=== PATIENT | male | born 1975 | race Caucasian/White ===

== ENCOUNTER 2016-06-12 20:11 | Emergency (ER) | payer OTHER ==
[2016-06-12 20:56] VITALS: BP 121/70; PULSE 99; TEMP 98.4; BMI 32.8
== END 2016-06-13 03:44 | disposition left against medical advice (07) ==
LOC: JERFT 20:11 → JER 20:11
DX: Z53.21 Procedure and treatment not carried out due to patient leaving prior to being seen by health care provider (principal)
CPT/HCPCS: 99281-25

== ENCOUNTER 2016-06-14 18:30 | Emergency (ER) | payer OTHER ==
--- NOTE | 2016-06-14 18:34 | PDOC ---
History of Present Illness - General History Source: Patient Exam Limitations: No Limitations - History of Present Illness Initial Comments: 06/14/16 19:06 The patient is a 40 year old male, occasional smoker, with a significant past medical history of HTN and GOUT who presents to the emergency department with left sided chest pain for 2 days and stomach pain for 3 weeks. The patient describes the chest pain as sharp, nonradiating, and intermittent with episodes lasting a few seconds at a time. The patient described his stomach pain as soreness and said it, feels like a string is attached to my stomach and someone is pulling on it. The patient notes that his stomach pain is exacerbated by movement. The patient states that he took 80 mg of aspirin with minimal alleviation of symptoms. <Babatunde Perez - Last Filed: 06/14/16 19:12> <Severo Alvarado - Last Filed: 06/14/16 19:18> - General Chief Complaint: Chest Pain Stated Complaint: EPISODE OF CHEST PAIN 2 DAYS AGO Time Seen by Provider: 06/14/16 18:33 Past History <Babatunde Perez - Last Filed: 06/14/16 19:12> - Past Medical History HTN: Yes - Immunization History Immunization Up to Date: Yes - Psycho/Social/Smoking Cessation Hx Suicidal Ideation: No Smoking History: Current every day smoker Number of Cigarettes Smoked Daily: 1 Hx Alcohol Use: No Drug/Substance Use Hx: No <Severo Alvarado - Last Filed: 06/14/16 19:18> - Past Medical History Allergies/Adverse Reactions: Allergies Allergy/AdvReac Type Severity Reaction Status Date / Time No Known Allergies Allergy Verified 06/12/16 20:56 Home Medications: Ambulatory Orders Aspirin [Aspirin EC] 81 mg PO DAILY 06/14/16 Losartan/Hydrochlorothiazide [Losartan-Hctz 100-25 mg Tab] 1 each PO DAILY 06/14 Review of Systems - Review of Systems Able to Perform ROS?: Yes Comments:: 06/14/16 19:06 CONSTITUTIONAL: Absent: Fever, Chills, Diaphoresis, Generalized Weakness, Malaise, Loss of Appetite HEENT: Absent: Rhinorrhea, Nasal Congestion, Throat Pain, Throat Swelling, Difficulty Swallowing, Mouth Swelling, Ear Pain, Eye Pain, Visual Changes CARDIOVASCULAR: Present: Chest Pain Absent: Syncope, Palpitations, Irregular Heart Rate, Lightheadedness, Peripheral Edema RESPIRATORY: Absent: Cough, Shortness of Breath, SOB with Exertion, Orthopnea, Wheezing, Stridor, Hemoptysis GASTROINTESTINAL: Present: Abdominal pain Absent: Abdominal Distension, Nausea, Vomiting, Diarrhea, Constipation, Melena, Hematochezia GENITOURINARY: Absent: Dysuria, Frequency, Urgency, Hesitancy, Flank Pain, Genital Pain MUSCULOSKELETAL: Absent: Myalgia, Arthralgia, Joint Swelling, Back pain, Neck Pain SKIN: Absent: Rash, Itching, Pallor HEMATOLOGIC/IMMUNOLOGIC: Absent: Easy Bleeding, Easy Bruising, Lymphadenopathy, Frequent infections ENDOCRINE: Absent: Unexplained Weight Gain, Unexplained Weight Loss, Heat Intolerance, Cold Intolerance NEUROLOGIC: Absent: Headache, Focal Weakness, Paresthesias, Vertigo, Lightheadedness, Unsteady Gait, Seizure, Mental Status Changes, Incontinence PSYCHIATRIC: Absent: Anxiety, Depression <Babatunde Perez - Last Filed: 06/14/16 19:12> *Physical Exam - Vital Signs Last Vital Signs Temp Pulse Resp BP Pulse Ox 98.0 F 86 15 132/90 98 06/14/16 18:32 06/14/16 18:32 06/14/16 18:32 06/14/16 18:32 06/14/16 18:32 - Physical Exam Comments: 06/14/16 19:08 GENERAL: The patient is awake, alert, and fully oriented, in no acute distress. HEAD: Normal with no signs of trauma. EYES: Pupils equal, round and reactive to light, extraocular movements intact, sclera anicteric, conjunctiva clear. ENT: Ears normal, nares patent, oropharynx clear without exudates. Moist mucous membranes. NECK: Normal range of motion, supple without lymphadenopathy, JVD, or masses. LUNGS: Breath sounds equal, clear to auscultation bilaterally. No wheezes, and no crackles. HEART: Regular rate and rhythm, normal S1 and S2 without murmur, rub or gallop. ABDOMEN: Soft, nontender, normoactive bowel sounds. No guarding, no rebound. No masses. EXTREMITIES: Normal range of motion, no edema. No clubbing or cyanosis. No cords , erythema, or tenderness. NEUROLOGICAL: Cranial nerves II through XII grossly intact. Normal speech, normal gait. PSYCH: Normal mood, normal affect. SKIN: Warm, Dry, normal turgor, no rashes or lesions noted. <Babatunde Perez - Last Filed: 06/14/16 19:12> Heart Score/ECG Review - History History: Slightly suspicious - Electrocardiogram EKG: Normal - Age Age: </= 45 - Risk Factors Risk Factors Heart Score: Yes Hx Hypertension, Yes Smoking History, Yes Positive family hx of cardiac disease Based on the list above the patient has:: >/=3 risk factors or Hx atherosclerotic disease - Troponin Troponin: </= normal limit - Score Heart Score - Total: 2 (Low risk) - ECG Impressions Comment:: 06/14/16 19:10 Twelve-lead EKG was performed and reviewed by me. There is [normal sinus rhythm ] at a rate of (85) beats per minute. The axis is [normal]. The intervals are normal. There are no abnormal Q waves. There are no abnormal ST elevations or depressions. There are no significant T wave abnormalities. Impression: Normal twelve-lead EKG. <Babatunde Perez - Last Filed: 06/14/16 19:12> ED Treatment Course - Medications Given in the ED: ED Medications Discontinued Medications Generic Name Dose Route Start Last Admin Trade Name Freq PRN Reason Stop Dose Admin Ranitidine HCl 300 mg 06/14/16 19:01 06/14/16 19:04 Zantac - PO 06/14/16 19:02 300 mg ONCE ONE Administration <AnaBabatunde - Last Filed: 06/14/16 19:12> Medical Decision Making - Medical Decision Making 06/14/16 19:16 Patient is a previously healthy 40-year-old man, does have cardiac risk factors of hypertension, occasional smoking, and family history of heart disease. He presents with very brief shooting episodes of left pectoral chest pain lasting for a few seconds at maximum. There are no associated symptoms of shortness of breath, vomiting, diaphoresis, and no radiation. On examination, the patient is normal. He also complains of some chronic steady abdominal discomfort after working out, notably when he turns or moves he feels pain in his upper abdomen. Abdominal examination is also benign. Twelve-lead EKG is normal. Patient's heart risk score puts him in the low risk category. Plan will be for serial troponins, if negative, patient can be discharged home given his less than 1% risk for acute coronary syndrome. Abdominal pain will be evaluated with lipase and LFTs. He more likely has musculoskeletal disease, or less likely peptic disease. Patient endorsed to Dr. Delfin Russo for further evaluation at change of shift. The scribe's documentation has been prepared under my direction and personally reviewed by me in its entirety. I have confirmed that the note above accurately reflects all work, treatment, procedures, and medical decision- making performed by me. <Severo Alvarado - Last Filed: 06/14/16 19:18> *DC/Admit/Observation/Transfer - Attestations Scribe Attestion: 06/14/16 19:10 Documentation prepared by Babatunde Perez, acting as medical secretary teacher for Severo Alvarado MD. <Babatunde Perez - Last Filed: 06/14/16 19:12> <Severo Alvarado - Last Filed: 06/14/16 19:18> Diagnosis at time of Disposition: Atypical chest pain - Discharge Dispostion Condition at time of disposition: Stable
[2016-06-14 18:59] VITALS: BP 132/90; PULSE 86; TEMP 98; BMI 32.8
[2016-06-14] MEDS ORDERED: RANITIDINE HCL 150 MG TABLET (FP) PO ONE (19:01)
[2016-06-14] MEDS ORDERED: RANITIDINE HCL 150 MG TABLET (FP) ONE (19:03)
[2016-06-14 19:36] LABS: BASOPHIL 0.5 % (0-2.0); EOSINOPHIL 2.6 % (0-4.5); MCH 29.8 pg (25.7-33.7); MCHC 33.6 g/dl (32.0-35.9); MEAN CELL VOLUME 88.6 fl (80-96); MEAN PLT VOLUME 7.9 fl (7.5-11.1); NEUTROPHILS 42.8 % (42.8-82.8); PLATELET COUNT 337 K/MM3 (134-434); RDW 12.3 % (11.9-15.9); WHITE BLOOD COUNT 8.3 K/mm3 (4.0-10.0)
[2016-06-14 19:46] LABS: ALBUMIN 4.3 g/dl (3.5-5.0); ALK PHOS 51 U/L (32-92); ANION GAP 9 (8-16); BILIRUBIN,TOTAL 0.5 mg/dl (0.2-1.0); CALCIUM 9.3 mg/dl (8.4-10.2); CO2 25 mmol/L (22-28); CREATININE 0.8 mg/dl (0.6-1.3); GLUCOSE,RANDOM 110 mg/dl (74-106); SGOT/AST 51 U/L (10-42); SGPT/ALT 45 U/L (10-40); TOT PROT 7.1 g/dl (6.4-8.3)
[2016-06-14 19:58] LABS: TROPONIN I (DFP) < 0.03 ng/ml (0.03-0.50)
[2016-06-14] MEDS ORDERED: POTASSIUM CHLORIDE TABS 20 MEQ TABLET.ER (FP) PO ONE ×2 (20:19→20:22)
[2016-06-14 20:21] LABS: CPK(DFH) 151 IU/L (38-174)
--- NOTE | 2016-06-14 22:19 | PDOC ---
*Physical Exam - Vital Signs Last Vital Signs Temp Pulse Resp BP Pulse Ox 98.0 F 86 15 132/90 98 06/14/16 18:32 06/14/16 18:32 06/14/16 18:32 06/14/16 18:32 06/14/16 18:32 06/14/16 22:18 Care of this patient was transferred to tx from Dr. Delgado at 7 PM. This is a 40-year-old male who has a complaint of chest pain with some cardiac risk factors. Patient's heart score is 2. Patient has a normal cardiogram, negative troponin and negative workup thus far Patient has a second set of enzymes that will be done at 10:20 PM and if they' re negative patient's risk of an acute coronary event is less than 1% and he will be discharged home for a outpatient workup.Manic 06/14/16 23:15 Patient's symptoms have resolved and his second set of enzymes is negative. Patient's chances of this being acute coronary syndrome is less than 1%. Patient discharged home ED Treatment Course - LABORATORY CBC & Chemistry Diagram: 06/14/16 19:20 06/14/16 19:20 - ADDITIONAL ORDERS Additional order review: Laboratory Results 06/14/16 06/14/16 06/14/16 19:20 19:20 19:20 Sodium 136 Potassium 3.3 L Chloride 102 Carbon Dioxide 25 Anion Gap 9 BUN 15 Creatinine 0.8 Creat Clearance w eGFR > 60 Random Glucose 110 H Calcium 9.3 Total Bilirubin 0.5 AST 51 H ALT 45 H Alkaline Phosphatase 51 Creatine Kinase 151 CK-MB (CK-2) 1.0 Cancelled CK-MB (CK-2) Rel Index 0.7 Troponin I < 0.03 L Total Protein 7.1 Albumin 4.3 Lipase 37 06/14/16 19:20 RBC 5.11 MCV 88.6 MCHC 33.6 RDW 12.3 MPV 7.9 Neutrophils % 42.8 Lymphocytes % 47.2 H Monocytes % 6.9 Eosinophils % 2.6 Basophils % 0.5 - Medications Given in the ED: ED Medications Discontinued Medications Generic Name Dose Route Start Last Admin Trade Name Freq PRN Reason Stop Dose Admin Potassium Chloride 40 meq 06/14/16 20:19 06/14/16 20:20 K-Dur - PO 06/14/16 20:20 40 meq ONCE ONE Administration Ranitidine HCl 300 mg 06/14/16 19:01 06/14/16 19:04 Zantac - PO 06/14/16 19:02 300 mg ONCE ONE Administration *DC/Admit/Observation/Transfer Diagnosis at time of Disposition: Atypical chest pain - Discharge Dispostion Disposition: HOME Condition at time of disposition: Stable - Patient Instructions Printed Discharge Instructions: DI for Atypical Chest Pain Additional Instructions: Is very important that you follow-up with your primary care doctor for further evaluation and a outpatient echo as well as stress test.. Return to the emergency department immediately with ANY new, persistent or worsening symptoms. Continue any medications as previously prescribed by your physician. You should follow up with your primary doctor as soon as possible regarding today's emergency department visit. . Please make sure your doctor reviews the results of your emergency evaluation. Thank you for coming to the Emergency Department today for your care. It was a pleasure to see you today. Please note that your evaluation is INCOMPLETE until you follow-up with your doctor.
[2016-06-14 22:54] LABS: CPK(DFH) 137 IU/L (38-174)
[2016-06-14 23:12] LABS: TROPONIN I (DFP) < 0.03 ng/ml (0.03-0.50)
[2016-06-14 23:13] LABS: CK MB 0.9 ng/ml (0.3-4.0)
--- NOTE | 2016-06-15 16:21 | EKG ---
Test Reason : Blood Pressure : / mmHG Vent. Rate : 085 BPM Atrial Rate : 085 BPM P-R Int : 138 ms QRS Dur : 088 ms QT Int : 348 ms P-R-T Axes : 039 023 004 degrees QTc Int : 414 ms NORMAL SINUS RHYTHM NORMAL ECG NO PREVIOUS ECGS AVAILABLE Confirmed by ARLEY DING MD ([id number]) on 06/15/2016 4:20:40 PM Referred By: Confirmed By:ARLEY DING MD
== END 2016-06-14 23:23 | disposition home or self-care (01) ==
LOC: FER 18:30
DX: R07.89 Other chest pain (principal); F17.210 Nicotine dependence, cigarettes, uncomplicated; I10 Essential (primary) hypertension; Z79.82 Long term (current) use of aspirin
CPT/HCPCS: 36415; 80053; 82550; 82553; 83690; 84484; 85025; 93005; 99283-25